=== PATIENT | male | born 1940 | race Caucasian/White ===

== ENCOUNTER → 2021-02-12 | Outpatient (CLI) | payer MEDICARE, OTHER ==
[~2021-02-12] MED LIST: CRESTOR20 MG PO; ELIQUIS2.5 MG PO; HYDROCODON-ACE1 EAC4 PO; IBUPROFEN800 MG PO; IPRAT-ALBUT 0.5-3 ML INH; LOPRESSOR50 MG PO; METOPROLOL TART25 MG PO; NORCO 7.5-3251 EACH PO; PREDNISONE20 MG PO; SYNTHROID 88 M88 MCG PO; TESSALON PERLE100 MG PO
== END ==
LOC: KOH-I 11:39
DX: M50.320 Other cervical disc degeneration, mid-cervical region, unspecified level (principal)
CPT/HCPCS: 72050

== ENCOUNTER 2021-05-19 11:53 | Emergency (ER) | payer MEDICARE, OTHER ==
[2021-05-19] MEDS ORDERED: MEDROL DOSEPAK 24 MG PO (16:52)
[2021-05-19] MEDS ORDERED: Voltaren Gel 1 % TOP (16:52)
== END 2021-05-19 17:05 | disposition home or self-care (01) ==
LOC: ER1 11:53
DX: M54.5 Low back pain (principal); M25.552 Pain in left hip; E78.5 Hyperlipidemia, unspecified; I10 Essential (primary) hypertension; E03.9 Hypothyroidism, unspecified; Z90.49 Acquired absence of other specified parts of digestive tract; F17.220 Nicotine dependence, chewing tobacco, uncomplicated
CPT/HCPCS: 72131; 73502; 99284; J1100

== ENCOUNTER → 2021-06-12 | Outpatient (CLI) | payer MEDICARE, OTHER ==
[~2021-06-12] MED LIST changes: +MEDROL DOSEPAK 24 MG PO; +Voltaren Gel 1 % TOP
== END ==
LOC: KOH-I 12:38 → EMI 13:00 → KOH-I 13:00
DX: M51.36 Other intervertebral disc degeneration, lumbar region (principal); M13.852 Other specified arthritis, left hip; M79.662 Pain in left lower leg; M51.37 Other intervertebral disc degeneration, lumbosacral region
CPT/HCPCS: 72148; 73721; 93925